=== PATIENT | male | born 1975 ===

== ENCOUNTER 2017-06-20 18:10 | Emergency (ER) | payer SELFPAY ==
[~2017-06-20] VITALS: Ht 175.3 cm; Wt 78.5 kg
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
--- NOTE | 2017-06-21 02:30 | NUR ---
Patient discharged to home in stable conditon. Written and verbal after care instructions given. Patient verbalizes understanding of instructions. PT ambulatory w/ steady gait. Took all belongings
[2017-06-21 03:02] VITALS: BP 130/90
== END 2017-06-21 02:30 | disposition home or self-care (01) ==
LOC: ER 18:11
DX: R00.0 Tachycardia, unspecified (principal); F12.90 Cannabis use, unspecified, uncomplicated; F41.9 Anxiety disorder, unspecified; F17.200 Nicotine dependence, unspecified, uncomplicated; Z88.1 Allergy status to other antibiotic agents
CPT/HCPCS: 93005; 99283; A4663